=== PATIENT | female | born 1965 | race Caucasian/White ===

== ENCOUNTER → 2021-10-16 | Outpatient (CLI) | payer BC ==
[2021-10-16 13:05] LABS: Basophils # (A) 0.1 k/uL (0-0.2); Basophils % (A) 1 %; Eosinophils # (A) 0.1 k/uL (0-0.7); Eosinophils % (A) 2 %; HCT 44.9 % (34.0-46.0); HGB 14.2 gm/dL (11.4-16.0); Lymphocytes # (A) 1.1 k/uL (1.0-4.8); Lymphocytes % (A) 20 %; MCH 30.6 pg (25.0-35.0); MCHC 31.7 g/dL (31.0-37.0); MCV 96.7 fL (80.0-100.0); Mean Platelet Volume 6.7; Monocytes # (A) 0.6 k/uL (0-1.0); Monocytes % (A) 10 %; Neutrophils # (A) 3.4 k/uL (1.3-7.7); Neutrophils % (A) 63 %; Platelet Count 308 k/uL (150-450); RBC 4.64 m/uL (3.80-5.40); RDW 12.2 % (11.5-15.5); WBC 5.3 k/uL (3.8-10.6)
[2021-10-16 13:15] LABS: ALT 16 U/L (4-34); AST 30 U/L (14-36); African American GFR (CKD) 82 (>60 ml/min/1.73 sqM); Albumin 4.5 g/dL (3.5-5.0); Albumin/Globulin Ratio 1.5; Alkaline Phosphatase 47 U/L (38-126); Amylase 55 U/L (30-110); Anion Gap 7 mmol/L; Blood Urea Nitrogen 16 mg/dL (7-17); Calcium 9.2 mg/dL (8.4-10.2); Carbon Dioxide 27 mmol/L (22-30); Chloride 104 mmol/L (98-107); Globulin 3.1 g/dL; Glucose 95 mg/dL (74-99); Lipase 35 U/L (23-300); Non-African American GFR(CKD) 71 (>60 ml/min/1.73 sqM); Potassium 4.6 mmol/L (3.5-5.1); Sodium 138 mmol/L (137-145); Total Bilirubin 0.8 mg/dL (0.2-1.3); Total Protein 7.6 g/dL (6.3-8.2)
--- NOTE | 2021-10-16 13:23 | CT ---
EXAMINATION TYPE: CT abdomen pelvis wo con DATE OF EXAM: 10/16/2021 COMPARISON: None available HISTORY: abdominal pain, diarrhea CT DLP: 213 mGycm Automated exposure control for dose reduction was used. TECHNIQUE: Helical acquisition of images was performed from the lung bases through the pelvis. FINDINGS: LUNG BASES: No significant abnormality is appreciated. LIVER/GB: No significant abnormality is appreciated. PANCREAS: No significant abnormality is seen. SPLEEN: No significant abnormality is seen. ADRENALS: No significant abnormality is seen. KIDNEYS: Suspected 1 mm nonobstructing calculus at the lower pole of the left kidney, otherwise unrem arkable kidneys. No hydroureter or hydronephrosis. FREE AIR: No free air is visualized RETROPERITONEAL ADENOPATHY: None visualized REPRODUCTIVE ORGANS: Suspected previous hysterectomy. No gross adnexal mass. URINARY BLADDER: Nondistended. PELVIC ADENOPATHY: None visualized. OSSEOUS STRUCTURES: Degenerative changes at L1-2 and L5-S1 levels. No gross aggressive bone lesion. BOWEL: Grossly unremarkable stomach. Suboptimal assessment of the small and large bowel due to pauci ty of intra-abdominal fat and the lack of IV and oral contrast administration. No evidence of small b owel obstruction. Suspected colonic wall thickening, please correlate clinically for colitis. Acute d iverticulitis cannot be excluded by this CT scan. OTHER: Right lower quadrant fluid is seen with pelvic mesenteric fat stranding, peritonitis cannot be excluded. Right gluteal stimulator device. IMPRESSION: 1. Suspected 1 mm left lower pole nonobstructing calculus. No hydroureter or hydronephrosis. 2. Suboptimal assessment of the small and large bowel as described above. Thickened colonic wall main ly the the proximal colon down to the splenic flexure, please correlate clinically for colitis. Acute diverticulitis cannot be excluded by this CT scan. Other findings as described above.
== END | disposition home or self-care (01) ==
LOC: RADCTMAIN 12:26
PROVIDERS: ATTEND Family Medicine
DX: K63.89 Other specified diseases of intestine (principal)
CPT/HCPCS: 74176; 80053; 82150; 83690; 85025